=== PATIENT | female | born 1965 | race Caucasian/White ===

== ENCOUNTER 2017-06-19 07:27 | Outpatient (CLI) | payer OTHER ==
--- NOTE | 2017-06-19 08:45 | CT ---
CT OF ABDOMEN AND PELVIS PERFORMED WITH INTRAVENOUS CONTRAST ENHANCEMENT: HISTORY: Pain along the left mid to lower abdomen intermittent x 3 months. History of and tubal lig ation. FINDINGS: The lung bases are clear of any infiltrative process. Small hypodensities within the liver are too small to characterize but statistically most likely cyst s. The spleen, pancreas, and gallbladder regions all appear unremarkable. Right and left adrenal glands and right and left kidneys are normal in size and appearance. There is no significant periaortic or mesenteric adenopathy. There is a mild amount of stool throughout the colon. CT OF PELVIS PERFORMED WITH CONTRAST: The appendix is normal. No adenopathy, mass, or free fluid. Endometrium appears slightly thickened. Considering the patient is stated to be postmenopausal, there is what appear to be probable fibroid s. IMPRESSION: Lobular contour to the uterus which is suggestive of fibroids with a suggestion of some endometrial t hickening and prominence in the region of the lower uterine segment or cervix region. I would sugges t ultrasound and clinical exam to assess these findings. POS: Myrtle
[2017-06-19] MEDS ORDERED: Iopamidol 370 76% 100 ML VIAL ONE (09:00)
== END 2017-06-19 07:28 | disposition home or self-care (01) ==
LOC: SCSCT 07:27
PROVIDERS: ATTEND Family Medicine
DX: R10.9 Unspecified abdominal pain (principal)
CPT/HCPCS: 74177